=== PATIENT | male | born 1960 | race Two or more races ===

== ENCOUNTER 2022-03-15 12:07 | Emergency (ER) | payer OTHER ==
[~2022-03-15] VITALS: Ht 160 cm; Wt 77.3 kg
[2022-03-15 12:15] VITALS: BP 116/69
[2022-03-15] MEDS ORDERED: AMOX-277 PO (13:14)
== END 2022-03-15 13:56 | disposition home or self-care (01) ==
LOC: ER 12:07
DX: S01.332A Puncture wound without foreign body of left ear, initial encounter (principal); W22.8XXA Striking against or struck by other objects, initial encounter; Y93.89 Activity, other specified; Y92.89 Other specified places as the place of occurrence of the external cause; Y99.8 Other external cause status

== ENCOUNTER 2023-08-21 14:26 | Emergency (ER) | payer MEDICAID ==
[~2023-08-21] VITALS: Ht 160 cm; Wt 81.0 kg
[~2023-08-21 14:26] MED LIST: AMOX875T4 PO
[2023-08-21] MEDS ORDERED: cefTRIAXone SOD 1,000 MG VL IM ONE (15:00)
[2023-08-21] MEDS ORDERED: HYDROcodone-ACET 5/325MG TAB PO ONE (15:00)
[2023-08-21] MEDS ORDERED: TETANUS-DIPTH-ACEL PERTUSSIS 0.5ML SYR Tdap IM ONE (15:00)
[2023-08-21 15:03] VITALS: BP 100/57; PULSE 71; RESP 71; TEMP 97.9; O2SAT 96
[2023-08-21] MEDS ORDERED: CEPH500C PO (15:37)
[2023-08-21] MEDS ORDERED: IBUP-1456 PO (15:37)
== END 2023-08-21 15:41 | disposition home or self-care (01) ==
LOC: ER 14:26
DX: S62.665A Nondisplaced fracture of distal phalanx of left ring finger, initial encounter for closed fracture (principal); W23.0XXA Caught, crushed, jammed, or pinched between moving objects, initial encounter; Y93.89 Activity, other specified; Y92.89 Other specified places as the place of occurrence of the external cause; Y99.8 Other external cause status
CPT/HCPCS: 29130; 73140; 90471; 90715; 96372; 99284; J0696